=== PATIENT | male | born 1960 | race Caucasian/White ===

== ENCOUNTER 2017-03-28 16:38 | Inpatient (IN) | payer SELFPAY ==
[~2017-03-28] VITALS: Ht 172.7 cm; Wt 64.5 kg
[2017-03-28] VITALS (10 sets, daily range): BP systolic 108–156; BP diastolic 67–93; PULSE 92–144; RESP 16–24; TEMP 91.3–98.1; O2SAT 95–100
[~2017-03-28 16:38] MED LIST: CALCIUM CHLORIDE 10% SOLN 1 GRAM/10 ML SYR IV ONE; FOLI1TAB PO; LANTUSP SQ; LORA-474 PO; MULTCAP13 PO; NRSS SQ; PROC60TA PO; SIMV20 PO; SODIUM BICARBONATE 8.4% INJ 50 MEQ/50 ML SYR IV ONE
[2017-03-28] MEDS ORDERED: SODIUM CHLOR 0.9% 1000 ML INJ 1,000 ML IV ONE ×4 (16:50→17:20)
[2017-03-28] MEDS ORDERED: SODIUM CHLORIDE 0.9% FLUSH 10 ML FLUSH IVF PRN (17:00)
[2017-03-28] MEDS ORDERED: INSULIN HUMAN REGULAR 1,000 UNITS/10 ML VIAL IV PUSH ONE ×2 (17:00→17:45)
[2017-03-28] MEDS: SODIUM BICARBONATE 8.4% INJ 50 MEQ/50 ML SYR IV PUSH ONE ×2 (17:10→17:43)
[2017-03-28 17:11] LABS: BLOOD GAS BASE EXCESS -27.5 mmol/L (-2-2); BLOOD GAS CARBOXYHEMOGLOBIN 0.9 % (0-4); BLOOD GAS HCO3 2 mmol/L (22-26); BLOOD GAS METHEMOGLOBIN 0.5 % (0-2); BLOOD GAS O2 HGB SATURATION 98 % (90-100); BLOOD GAS OXYGEN CONTENT 19.7 Vol % (12.0-20.0); BLOOD GAS PCO2 8 mmHg (38-42); BLOOD GAS PO2 259 mmHG (61-120); BLOOD GAS TOTAL HGB 13.9 G/DL (12.0-16.0); TEMP CORR TO 98.6
[2017-03-28 17:12] LABS: CRITICAL VALUE YES; DRAW SITE LT RADIAL; LITER FLOW 4 L/M; NUMBER OF ARTERIAL PUNCTURES 1; OXYGEN DEVICE NASAL CANNULA; STAT YES; ULNAR PULSE PRESENT
[2017-03-28 17:33] LABS: BASOPHIL % 0.3 % (0.0-2.0); EOSINOPHIL % 0.1 % (0.0-4.0); HEMATOCRIT 43.4 % (39.0-51.0); LYMPH % 5.2 % (9.0-44.0); LYMPHOCYTE # 0.4 TH/MM3 (1.0-4.8); MEAN CELL VOLUME 106.9 FL (80.0-100.0); MEAN CORPUSCULAR HGB CONC 32.8 % (32.0-36.0); MONO % 5.5 % (0.0-8.0); NEUT % 88.9 % (16.0-70.0); PLATELET COUNT 229 TH/MM3 (150-450); RED BLOOD COUNT 4.06 MIL/MM3 (4.50-5.90); RED CELL DISTRIBUTION WIDTH 13.4 % (11.6-17.2); WHITE BLOOD COUNT 6.7 TH/MM3 (4.0-11.0)
[2017-03-28] MEDS ORDERED: LANTUS2P SQ (17:34)
[2017-03-28] MEDS ORDERED: NOVOLOGP2 SQ (17:34)
[2017-03-28 17:38] LABS: HEMO FLAGS AUTO DIFF
[2017-03-28] MEDS ORDERED: CEFEPIME INJ 2,000 MG in SODIUM CHLORIDE 0.9% INJ 100 ML IV ONE (17:45)
[2017-03-28] MEDS ORDERED: CALCIUM CHLORIDE 10% SOLN 1 GRAM/10 ML SYR IV PUSH ONE (17:45)
[2017-03-28] MEDS ORDERED: SODIUM BICARBONATE 8.4% INJ 50 MEQ/50 ML SYR IV PUSH ONE (17:45)
[2017-03-28] MEDS ORDERED: VANCOMYCIN INJ 1,000 MG in SODIUM CHLOR 0.9% 250 ML INJ 250 ML IV ONE (17:45)
--- NOTE | 2017-03-28 17:46 | PD ---
HPI Chief Complaint: Diabetic Time Seen by Provider: 16:40 Travel History International Travel<30 days: No Contact w/Intl Traveler<30days: No Traveled to known affect area: No History of Present Illness HPI The patient's 56 years old. He is a insulin-dependent diabetic. EMS reports they were called by his because he was found down at home. On scene the blood glucose was outside of the measurable range. Initially when the patient arrived he was only minimally responsive. EMS did place a right antecubital 16- gauge IV. Here in the blood glucose was unmeasurably high. The EKG revealed peaked T waves and a QRS complex duration of 132 ms. 2 L normal saline immediately initiated along with calcium and 10 units of insulin. The patient then underwent placement of a right internal jugular central line. He subsequently received 3 and feels of bicarbonate, a second gram of calcium chloride and a second dose of insulin 10 units. 2 additional liters normal saline transfused. The patient then became conversant reported that he was vomiting repeatedly uncontrollably. the patient denies drinking any alcohol for the past 4 weeks. He also states that if he is physically inactive then insulin seems to not work despite large doses. PFSH Past Medical History Autoimmune Disease: No Anxiety: No Depression: No Cancer: No Cardiovascular Problems: No High Cholesterol: Yes Diabetes: Yes Patient Takes Glucophage: No Diminished Hearing: No Endocrine: Yes Genitourinary: Yes (H/O kidney stones) Immune Disorder: No Musculoskeletal: No Neurologic: No Psychiatric: No Reproductive: No Respiratory: No Immunizations Current: Yes Thyroid Disease: No Past Surgical History Abdominal Surgery: Yes (LEFT HERNIORRAPHY) Cardiac Surgery: No Ear Surgery: No Endocrine Surgery: No Eye Surgery: No Genitourinary Surgery: No Gynecologic Surgery: No Oral Surgery: No Thoracic Surgery: No Social History Alcohol Use: No Tobacco Use: No Substance Use: No (MARIJUANA ) Allergies-Medications (Allergen,Severity, Reaction): Coded Allergies: No Known Allergies (Verified , 03/28/17) Reported Meds & Prescriptions Reported Meds & Active Scripts Active Reported Lantus Inj (Insulin Glargine) 1,000 Unit/10 Ml Vial 37 Units SQ HS Novolog Inj (Insulin Aspart) 1,000 Unit/10 Ml Vial 0 SQ DIRECTED Sliding Scale as directed. Folate (Folic Acid) 1 Mg Tab 1 Mg PO DAILY Multi Complete (Multiple Vitamins W/ Minerals) Complete Cap 1 PO Procardia Xl (Nifedipine) 60 Mg Tab 60 Mg PO DAILY Ativan (Lorazepam) 1 Mg Tab 1 Mg PO Q4HPRN Take 1 tablet by mouth every 6 hours as needed for anxiety (generic for ativan) Novolin Regular Insulin Supplemental Scale (Insulin Human Regular) U 100 Inj 0 SQ DAILY Zocor (Simvastatin) 20 Mg Tab 20 Mg PO HS Lantus (Insulin Glargine) 100 Units/Ml Inj 30 Units SQ HS Review of Systems ROS Limitations: Altered Mental Status Physical Exam Narrative GENERAL: 56 yo M, moderate to severe distress, WNWD, speaks some sentences SKIN: Focused skin assessment warm/dry. HEAD: Atraumatic. Normocephalic. EYES: Pupils equal and round. No scleral icterus. No injection or drainage. ENT: No nasal bleeding or discharge. Mucous membranes pink and moist. NECK: Trachea midline. No JVD. CARDIOVASCULAR: Tachycardia. Irregular. RESPIRATORY: Tachypnea. Lungs clear. GASTROINTESTINAL: Abdomen soft, non-tender, nondistended. Hepatic and splenic margins not palpable. MUSCULOSKELETAL: No obvious deformities. No clubbing. No cyanosis. No edema. NEUROLOGICAL: Answers some questions. No focal cranial nerve deficit. Moves all extremities normally. PSYCHIATRIC. Unable to assess. Data Data Last Documented VS Vital Signs Date Time Temp Pulse Resp B/P Pulse Ox O2 Delivery O2 Flow Rate FiO2 03/28/17 17:55 91.3 03/28/17 17:36 135 24 108/67 95 Room Air 03/28/17 16:55 2 Orders Electrocardiogram (03/28/17 16:50) Complete Blood Count With Diff (03/28/17 16:50) Comprehensive Metabolic Panel (03/28/17 16:50) Magnesium (Mg) (03/28/17 16:50) Phosphorus (Po4) (03/28/17 16:50) Beta Hydroxybutyrate (Acetone) (03/28/17 16:50) Osmolality,Serum (03/28/17 16:50) Lactic Acid (03/28/17 16:50) Urinalysis - C+S If Indicated (03/28/17 16:50) Chest, Single Ap (03/28/17 16:50) Arterial Blood Gas (Abg) (03/28/17 16:50) Blood Glucose (03/28/17 16:50) Blood Glucose (03/28/17 17:50) Ecg Monitoring (03/28/17 16:50) Iv Access Insert/Monitor (03/28/17 16:50) Oximetry (03/28/17 16:50) Oxygen Administration (03/28/17 16:50) NPO (03/28/17 16:50) Sodium Chlor 0.9% 1000 Ml Inj (Ns 1000 M (03/28/17 16:50) Sodium Chlor 0.9% 1000 Ml Inj (Ns 1000 M (03/28/17 17:20) Sodium Chloride 0.9% Flush (Ns Flush) (03/28/17 17:00) Sodium Chlor 0.9% 1000 Ml Inj (Ns 1000 M (03/28/17 16:50) Troponin I (03/28/17 16:50) Lipase (03/28/17 16:50) Insulin Human Regular Inj (Novolin R Inj (03/28/17 17:00) Sodium Chlor 0.9% 1000 Ml Inj (Ns 1000 M (03/28/17 17:00) I-Stat Creatinine (03/28/17 16:50) I-Stat Profile (03/28/17 16:50) Drug Screen, Random Urine (03/28/17 17:31) Sodium Bicarbonate 8.4% Inj (Sodium Bica (03/28/17 17:45) Sodium Bicarbonate 8.4% Inj (Sodium Bica (03/28/17 17:45) Insulin Human Regular Inj (Novolin R Inj (03/28/17 17:45) Calcium Chloride Inj (Calcium Chloride I (03/28/17 17:45) Warming Rose / Warming Syst PRN (03/28/17 17:41) Cefepime Inj (Maxipime Inj) (03/28/17 17:45) Vancomycin Inj (Vancomycin Inj) (03/28/17 17:45) Urinary Catheter Insert/Apply (03/28/17 17:42) Blood Culture (03/28/17 17:46) Alcohol (Ethanol) (03/28/17 17:15) Admit To Inpatient (03/28/17 ) Tinsmith Apprentice / Telemetry BERNICE.Q8H (03/28/17 18:40) ^ Insert Iv (03/28/17 18:40) ^ Teach Patient (03/28/17 18:40) Diet Npo (03/28/17 Dinner) Bedside Glucose BERNICE.Q1H (03/28/17 18:40) Sodium Chlor 0.9% 1000 Ml Inj (Ns 1000 M (03/28/17 18:40) Dext 5%-Nacl 0.9% 1000 Ml Inj (D5w-Ns 10 (03/28/17 18:40) Insulin Regular (Iv Infusion) (Novolin R (03/28/17 18:45) Potassium Chlor 40 Meq Premix (Kcl 40 Me (03/28/17 18:45) Potassium Chlor 40 Meq Premix (Kcl 40 Me (03/28/17 18:45) Potassium Chlor 20 Meq Premix (Kcl 20 Me (03/28/17 18:45) Potassium Chlor 20 Meq Premix (Kcl 20 Me (03/28/17 18:45) Potassium Chlor 20 Meq Premix (Kcl 20 Me (03/28/17 18:45) Potassium Chlor 20 Meq Premix (Kcl 20 Me (03/28/17 18:45) Potassium Chlor 20 Meq Premix (Kcl 20 Me (03/28/17 18:45) Potassium Chlor 20 Meq Premix (Kcl 20 Me (03/28/17 18:45) Sodium Bicarbonate 8.4% Inj (Sodium Bica (03/28/17 18:45) Sodium Bicarbonate 8.4% Inj (Sodium Bica (03/28/17 18:45) Sodium Phosphate Inj (Sodium Phosphate I (03/28/17 18:45) Basic Metabolic Panel (Bmp) (03/28/17 23:40) Basic Metabolic Panel (Bmp) (03/29/17 05:40) Basic Metabolic Panel (Bmp) (03/29/17 11:40) Basic Metabolic Panel (Bmp) (03/29/17 17:40) Magnesium (Mg) (03/28/17 23:40) Magnesium (Mg) (03/29/17 05:40) Magnesium (Mg) (03/29/17 11:40) Magnesium (Mg) (03/29/17 17:40) Phosphorus (Po4) (03/28/17 23:40) Phosphorus (Po4) (03/29/17 05:40) Phosphorus (Po4) (03/29/17 11:40) Phosphorus (Po4) (03/29/17 17:40) Beta Hydroxybutyrate (Acetone) (03/29/17 05:40) Beta Hydroxybutyrate (Acetone) (03/29/17 17:40) ^ Initiate Protocol (03/28/17 18:40) ^ Instruction (03/28/17 18:40) [facility] Nursing Information (03/28/17 18:45) Chlorhexidine 2% Cloth (Chlorhexidine 2% (03/29/17 04:00) Chlorhexidine 2% Cloth (Chlorhexidine 2% (03/28/17 18:45) Mrsa Pcr Surveillance (03/28/17 18:40) Inpatient Certification (03/28/17 ) Consult Hospitalist (03/28/17 ) Admit Order (Ed Use Only) (03/28/17 18:51) Labs Laboratory Tests Test 03/28/17 03/28/17 03/28/17 16:48 17:15 17:56 Blood Gas Puncture Site LT RADIAL Blood Gas Patient Temperature 98.6 Blood Gas HCO3 2 mmol/L Blood Gas Base Excess -27.5 mmol/L Blood Gas Oxygen Saturation 98 % Arterial Blood pH 7.02 Arterial Blood Partial 8 mmHg Pressure CO2 Arterial Blood Partial 259 mmHG Pressure O2 Arterial Blood Oxygen Content 19.7 Vol % Arterial Blood 0.9 % Carboxyhemoglobin Arterial Blood Methemoglobin 0.5 % Blood Gas Hemoglobin 13.9 G/DL Oxygen Delivery Device NASAL CANNULA Blood Gas Liter Flow 4 L/M White Blood Count 6.7 TH/MM3 Red Blood Count 4.06 MIL/MM3 Hemoglobin 14.2 GM/DL Bedside Hemoglobin 16.3 G/DL Hematocrit 43.4 % Bedside Hematocrit 48.0 % Mean Corpuscular Volume 106.9 FL Mean Corpuscular Hemoglobin 35.0 PG Mean Corpuscular Hemoglobin 32.8 % Concent Red Cell Distribution Width 13.4 % Platelet Count 229 TH/MM3 Mean Platelet Volume 9.4 FL Neutrophils (%) (Auto) 88.9 % Lymphocytes (%) (Auto) 5.2 % Monocytes (%) (Auto) 5.5 % Eosinophils (%) (Auto) 0.1 % Basophils (%) (Auto) 0.3 % Neutrophils # (Auto) 6.0 TH/MM3 Lymphocytes # (Auto) 0.4 TH/MM3 Monocytes # (Auto) 0.4 TH/MM3 Eosinophils # (Auto) 0.0 TH/MM3 Basophils # (Auto) 0.0 TH/MM3 CBC Comment AUTO DIFF Differential Total Cells 100 Counted Neutrophils % (Manual) 78 % Band Neutrophils % 7 % Lymphocytes % 4 % Monocytes % 11 % Neutrophils # (Manual) 5.7 TH/MM3 Differential Comment FINAL DIFF MANUAL Platelet Estimate NORMAL Platelet Morphology Comment NORMAL Red Cell Morphology Comment NORMAL Bedside Sodium 117 MMOL/L Sodium Level 118 MEQ/L Bedside Potassium 5.5 MMOL/L Potassium Level 5.3 MEQ/L Bedside Chloride 93 MMOL/L Chloride Level 83 MEQ/L Carbon Dioxide Level 6.0 MEQ/L Anion Gap 29 MEQ/L Bedside Blood Urea Nitrogen 58 MG/DL Blood Urea Nitrogen 52 MG/DL Creatinine 2.48 MG/DL Bedside Creatinine 2.0 MG/DL Estimat Glomerular Filtration 27 ML/MIN Rate Bedside Glucose GREATER THAN 700 MG/DL Random Glucose 869 MG/DL Serum Osmolality 324 MOSM/KG Lactic Acid Level 1.7 mmol/L Calcium Level 8.5 MG/DL Phosphorus Level 6.8 MG/DL Magnesium Level 2.9 MG/DL Total Bilirubin 0.6 MG/DL Aspartate Amino Transf 48 U/L (AST/SGOT) Alanine Aminotransferase 36 U/L (ALT/SGPT) Alkaline Phosphatase 158 U/L Troponin I LESS THAN 0.02 NG/ML Total Protein 6.5 GM/DL Albumin 3.4 GM/DL Lipase 647 U/L Ethyl Alcohol Level LESS THAN 3 MG/DL B-Hydroxybutyrate 11.85 MMOL/L Urine Color LIGHT-YELLOW Urine Turbidity CLEAR Urine pH 5.0 Urine Specific [place] 1.012 Urine Protein TRACE mg/dL Urine Glucose (UA) 1000 mg/dL Urine Ketones 40 mg/dL Urine Occult Blood SMALL Urine Nitrite NEG Urine Bilirubin NEG Urine Urobilinogen LESS THAN 2.0 MG/DL Urine Leukocyte Esterase NEG Urine RBC LESS THAN 1 /hpf Urine WBC 5 /hpf Urine Squamous Epithelial <1 /hpf Cells Urine Bacteria NONE /hpf Urine Mucus FEW /lpf Urine Yeast (Budding) Microscopic Urinalysis Comment CULT NOT INDICATED Urine Opiates Screen NEG Urine Barbiturates Screen NEG Urine Amphetamines Screen NEG Urine Benzodiazepines Screen NEG Urine Cocaine Screen NEG Urine Cannabinoids Screen NEG MDM Medical Decision Making Medical Screen Exam Complete: Yes Emergency Medical Condition: Yes Medical Record Reviewed: Yes Differential Diagnosis Diabetic ketoacidosis, nonketotic hyperglycemic state, hyperkalemia, renal failure, rhabdomyolysis, anemia, sepsis Narrative Course Patient's rectal temperature 91.8. A warming blanket was applied. Blood cultures drawn. Vancomycin and cefepime started. Bell catheter was initiated as well. [id number] electrolytes reveal sodium 117, potassium 5.5, chloride 93, BUN 58 , creatinine 2.0, glucose greater than 700, hemoglobin 16.3 AB.02/8/2 base excess -27.5 ABG PO2 259 on 4 L Patient has diabetic ketoacidosis and will be admitted to the ICU for its management. CBC & BMP Diagram 03/28/17 17:15 Anion gap 29 Been neutrophils 7% Serum osmolality 329 Lipase 647 Troponin less than 0.02 Beta 11.85 First EKG reveals atrial fibrillation with a QRS interval of 132 ms and some prominence of the T waves After initial resuscitative measures the repeat EKG reveals a supraventricular somewhat irregular rhythm with a QRS interval of 112 ms The patient [place] be [place] [facility] Case discussed with Dr. Sherman. Critical Care Narrative Aggregate critical care time was 45 minutes. Time to perform other separately billable procedures was not included in the critical care time. My time did not include minutes spent treating any other patients simultaneously or on activities that did not directly contribute to the patient's treatment. The services I provided to this patient were to treat and/or prevent clinically significant deterioration that could result in: Arrhythmia, cardiac arrest I provided critical care services requiring my management, as noted below: Chart data review, documentation time, medication orders and management, vital sign assessments/reviewing monitor data, ordering and reviewing lab tests, ordering and interpreting/reviewing x-rays and diagnostic studies, care of the patient and discussion of the patient with the admitting physicians.Aggregate critical care Procedures Procedure Narrative CENTRAL VENOUS LINE: The site was prepped with Betadine and sterilely draped. It was infiltrated with 1% lidocaine plain. The deep vein was cannulated using normal Seldinger technique. A 3 lumen central line was placed in the internal jugular site and secured with simple interrupted suture. The site was sterilely dressed. The patient tolerated the procedure well. Ultrasound technique employed. Diagnosis Primary Impression: DKA (diabetic ketoacidoses) Qualified Code: E10.10 - Diabetic ketoacidosis without coma associated with type 1 diabetes mellitus Additional Impressions: Atrial fibrillation Qualified Code: I48.91 - Atrial fibrillation, unspecified type Hyponatremia Hyperkalemia Prerenal renal failure Admitting Information Admitting Physician Requests: Admit Ronald Barrera MD March 28, 2017 17:46
--- NOTE | 2017-03-28 18:03 | RADRPT ---
EXAM DATE/TIME: 03/28/2017 17:10 [place] COMPARISON: No previous studies available for comparison. INDICATIONS : Post central line placement. MEDICAL HISTORY : Diabetes mellitus type II. SURGICAL HISTORY : None. ENCOUNTER: Initial ACUITY: 1 day PAIN SCORE: 0/10 LOCATION: Bilateral chest FINDINGS: A right internal jugular central line has its tip in the superior vena cava. There is no pneumothora x. The heart and mediastinal structures are normal. The pulmonary vascular pattern is also normal. The lungs are clear. CONCLUSION: 1. No pneumothorax status post placement of right internal jugular central line which has its tip in the superior vena cava. Eddi Van MD on March 28, 2017 at 17:58 Board Certified Radiologist. This report was verified electronically.
[2017-03-28 18:07] LABS: I-STAT POTASSIUM 5.5 MMOL/L (3.5-4.9); I-STAT SODIUM 117 MMOL/L (138-146)
[2017-03-28 18:11] LABS: BANDS 7 % (0-6); NEUTROPHIL # MANUAL DIFF 5.7 TH/MM3 (1.8-7.7); PLATELET ESTIMATE SMEAR NORMAL (NORMAL); PLATELET MORPHOLOGY NORMAL (NORMAL); POLYS (SEG NEUTROPHILS) 78 % (16-70); SCAN/DIFF FINAL DIFF MANUAL; WBC DIFF SAMPLE 100
[2017-03-28 18:17] LABS: BLOOD, URINE SMALL (NEG); COMMENT (UR) CULT NOT INDICATED; CULTURE IF INDICATED CULT NOT INDICATED; GLUCOSE,URINE 1000 mg/dL (NEG); KETONE, URINE 40 mg/dL (NEG); MUCUS URINE FEW /lpf (OCC); NITRITE,URINE NEG (NEG); SQUAMOUS EPITHELIAL CELL URINE <1 /hpf (0-5); URINE COLOR LIGHT-YELLOW (YELLW/STRAW)
[2017-03-28 18:25] LABS: AMPHETAMINE, URINE NEG (NEG); BARBITURATES, URINE NEG (NEG); COCAINE, URINE NEG (NEG)
[2017-03-28 18:36] LABS: ALKALINE PHOSPHATASE 158 U/L (45-117); ALT (GPT) 36 U/L (12-78); ANION GAP 29 MEQ/L (5-15); AST (GOT) 48 U/L (15-37); BLOOD UREA NITROGEN 52 MG/DL (7-18); CHLORIDE 83 MEQ/L (98-107); GLOMERULAR FILTRATION RATE 27 ML/MIN (>89); MAGNESIUM 2.9 MG/DL (1.5-2.5); TOTAL BILIRUBIN ADULT 0.6 MG/DL (0.2-1.0)
[2017-03-28 18:37] LABS: POTASSIUM 5.3 MEQ/L (3.5-5.1)
[2017-03-28 18:40] LABS: SODIUM (NA) 118 MEQ/L (136-145)
--- NOTE | 2017-03-28 18:43 | HHI.HP ---
[facility] Service Critical Care Medicine Primary Care Physician Unknown Admission Diagnosis Diagnosis: Travel History International Travel<30 Days: No Contact w/Intl Traveler <30 Da: No Traveled to Known Affected Are: No History of Present Illness 56 years old with a history of an insulin-dependent diabetes mellitus was found by his down at home. On scene the blood glucose was outside of the measurable range. Initially when the patient arrived to emergency department he was only minimally responsive. He was emergently resuscitated with IV fluid hydration and insulin bolus. He has been admitted to ICU with the DKA. Review of Systems Constitutional: COMPLAINS OF: Diaphoretic episodes, Fatigue, DENIES: Fever, Weight gain, Weight loss, Chills, Dizziness, Change in appetite, Night Sweats Endocrine: DENIES: Heat/cold intolerance, Polydipsia, Polyuria, Polyphagia Eyes: DENIES: Blurred vision, Diplopia, Eye inflammation, Eye pain, Vision loss , Photosensitivity, Double Vision Ears, nose, mouth, throat: DENIES: Tinnitus, Hearing loss, Vertigo, Nasal discharge, Oral lesions, Throat pain, Hoarseness, Ear Pain, Running Nose, Epistaxis, Sinus Pain, Toothache, Odynophagia Respiratory: DENIES: Apneas, Cough, Snoring, Wheezing, Hemoptysis, Sputum production, Shortness of breath Cardiovascular: DENIES: Chest pain, Palpitations, Syncope, Dyspnea on Exertion , PND, Lower Extremity Edema, Orthopnea, Claudication Gastrointestinal: COMPLAINS OF: Abdominal pain, Nausea, Vomiting, DENIES: Black stools, Bloody stools, Constipation, Diarrhea, Difficulty Swallowing, Anorexia Genitourinary: DENIES: Sexual dysfunction, Urinary frequency, Urinary incontinence, Urgency, Hematuria, Dysuria, Nocturia, Penile Discharge, Testicular Pain, Testicular Swelling Integumentary: DENIES: Abnormal pigmentation, Nail changes, Pruritus, Rash Hematologic/lymphatic: DENIES: Bruising, Lymphadenopathy Immunologic/allergic: DENIES: Eczema, Urticaria Past Family Social History Allergies: Coded Allergies: No Known Allergies (Verified , 03/28/17) Past Medical History Insulin-dependent diabetes mellitus Dyslipidemia Past Surgical History None Reported Medications Reported Meds & Active Scripts Active Reported Lantus Inj (Insulin Glargine) 1,000 Unit/10 Ml Vial 37 Units SQ HS Novolog Inj (Insulin Aspart) 1,000 Unit/10 Ml Vial 0 SQ DIRECTED Sliding Scale as directed. Active Ordered Medications Current Medications Medications (Trade) Dose Ordered Sig/Cherise Route PRN Reason Start Time Stop Time Status Last Admin Dose Admin Sodium Chloride 2 ml 2 ml UNSCH PRN IVF FLUSH AFTER USING IV ACCESS 03/28/17 17:00 Sodium Chloride 1,000 ml @ 250 mls/hr Q4H IV 03/28/17 18:40 03/28/17 19:27 Dextrose/Sodium Chloride 1,000 ml @ 200 mls/hr Q5H IV 03/28/17 18:40 Insulin Human Regular 100 units/ Sodium Chloride 100 ml @ 0 mls/hr TITRATE IV 03/28/17 18:45 03/28/17 19:26 Potassium Chloride 100 ml @ 100 mls/hr Q1H PRN IV SEE LABEL COMMENTS 03/28/17 18:45 Potassium Chloride 100 ml @ 50 mls/hr Q2H PRN IV SEE LABEL COMMENTS 03/28/17 18:45 Potassium Chloride 100 ml @ 100 mls/hr Q1H PRN IV SEE LABEL COMMENTS 03/28/17 18:45 Potassium Chloride 100 ml @ 100 mls/hr Q1H PRN IV SEE LABEL COMMENTS 03/28/17 18:45 Potassium Chloride 100 ml @ 50 mls/hr Q2H PRN IV SEE LABEL COMMENTS 03/28/17 18:45 Potassium Chloride 100 ml @ 50 mls/hr Q2H PRN IV SEE LABEL COMMENTS 03/28/17 18:45 Potassium Chloride 100 ml @ 50 mls/hr Q2H PRN IV SEE LABEL COMMENTS 03/28/17 18:45 Potassium Chloride (KCl 20 Meq Premix Inj) 100 ml @ 50 mls/hr Q2H PRN IV SEE LABEL COMMENTS 03/28/17 18:45 Sodium Bicarbonate (Sodium Bicarbonate 8.4% Inj) 100 meq UNSCH PRN IV SEE LABEL COMMENTS 03/28/17 18:45 Sodium Bicarbonate 50 meq 50 meq UNSCH PRN IV SEE LABEL COMMENTS 03/28/17 18:45 Sodium Phosphate/ Sodium Chloride (Sodium Phosphate Inj/NS Inj) 105 ml @ 25 mls/hr UNSCH PRN IV SEE LABEL COMMENTS 03/28/17 18:45 Miscellaneous Information 1 [id number] XX 03/28/17 18:45 Chlorhexidine Gluconate (Chlorhexidine 2% Cloth) 3 pack Taper DAILY@04 TOP 03/29/17 04:00 03/25/18 03:59 Chlorhexidine Gluconate (Chlorhexidine 2% Cloth) 3 pack UNSCH PRN TOP HYGIENIC CARE 03/28/17 18:45 Family History Noncontributory Social History History of alcohol binge drinking in the past No history of smoking or illicit drug abuse Physical Exam Vital Signs Vital Signs Date Time Temp Pulse Resp B/P Pulse Ox O2 Delivery O2 Flow Rate FiO2 03/28/17 17:55 91.3 03/28/17 17:41 91.3 03/28/17 17:36 135 24 108/67 95 Room Air 03/28/17 17:10 110 24 128/85 95 Room Air 03/28/17 16:55 95 Nasal Cannula 2 03/28/17 16:50 144 Physical Exam GENERAL: Well-nourished, well-developed patient. SKIN: Warm and dry. HEAD: Normocephalic. EYES: No scleral icterus. No injection or drainage. NECK: Supple, trachea midline. No JVD or lymphadenopathy. CARDIOVASCULAR: Regular rate and rhythm without murmurs, gallops, or rubs. RESPIRATORY: Breath sounds equal bilaterally. No accessory muscle use. GASTROINTESTINAL: Abdomen soft, non-tender, nondistended. MUSCULOSKELETAL: No cyanosis, or edema. BACK: Nontender without obvious deformity. No CVA tenderness. EXTREMITIES: No clubbing cyanosis or edema Laboratory Laboratory Tests Test 03/28/17 03/28/17 03/28/17 16:48 17:15 17:56 Blood Gas Puncture Site LT RADIAL Blood Gas Patient Temperature 98.6 Blood Gas HCO3 2 Blood Gas Base Excess -27.5 Blood Gas Oxygen Saturation 98 Arterial Blood pH 7.02 Arterial Blood Partial 8 Pressure CO2 Arterial Blood Partial 259 Pressure O2 Arterial Blood Oxygen Content 19.7 Arterial Blood 0.9 Carboxyhemoglobin Arterial Blood Methemoglobin 0.5 Blood Gas Hemoglobin 13.9 Oxygen Delivery Device NASAL CANNULA Blood Gas Liter Flow 4 White Blood Count 6.7 Red Blood Count 4.06 Hemoglobin 14.2 Bedside Hemoglobin 16.3 Hematocrit 43.4 Bedside Hematocrit 48.0 Mean Corpuscular Volume 106.9 Mean Corpuscular Hemoglobin 35.0 Mean Corpuscular Hemoglobin 32.8 Concent Red Cell Distribution Width 13.4 Platelet Count 229 Mean Platelet Volume 9.4 Neutrophils (%) (Auto) 88.9 Lymphocytes (%) (Auto) 5.2 Monocytes (%) (Auto) 5.5 Eosinophils (%) (Auto) 0.1 Basophils (%) (Auto) 0.3 Neutrophils # (Auto) 6.0 Lymphocytes # (Auto) 0.4 Monocytes # (Auto) 0.4 Eosinophils # (Auto) 0.0 Basophils # (Auto) 0.0 CBC Comment AUTO DIFF Differential Total Cells 100 Counted Neutrophils % (Manual) 78 Band Neutrophils % 7 Lymphocytes % 4 Monocytes % 11 Neutrophils # (Manual) 5.7 Differential Comment FINAL DIFF MANUAL Platelet Estimate NORMAL Platelet Morphology Comment NORMAL Red Cell Morphology Comment NORMAL Bedside Sodium 117 Sodium Level 118 Bedside Potassium 5.5 Potassium Level 5.3 Bedside Chloride 93 Chloride Level 83 Carbon Dioxide Level 6.0 Anion Gap 29 Bedside Blood Urea Nitrogen 58 Blood Urea Nitrogen 52 Creatinine 2.48 Bedside Creatinine 2.0 Estimat Glomerular Filtration 27 Rate Bedside Glucose GREATER THAN 700 Random Glucose 869 Serum Osmolality 324 Lactic Acid Level 1.7 Calcium Level 8.5 Phosphorus Level 6.8 Magnesium Level 2.9 Total Bilirubin 0.6 Aspartate Amino Transf 48 (AST/SGOT) Alanine Aminotransferase 36 (ALT/SGPT) Alkaline Phosphatase 158 Troponin I LESS THAN 0.02 Total Protein 6.5 Albumin 3.4 Lipase 647 Ethyl Alcohol Level LESS THAN 3 Urine Color LIGHT-YELLOW Urine Turbidity CLEAR Urine pH 5.0 Urine Specific [place] 1.012 Urine Protein TRACE Urine Glucose (UA) 1000 Urine Ketones 40 Urine Occult Blood SMALL Urine Nitrite NEG Urine Bilirubin NEG Urine Urobilinogen LESS THAN 2.0 Urine Leukocyte Esterase NEG Urine RBC LESS THAN 1 Urine WBC 5 Urine Squamous Epithelial <1 Cells Urine Bacteria NONE Urine Mucus FEW Urine Yeast (Budding) Microscopic Urinalysis Comment CULT NOT INDICATED Urine Opiates Screen NEG Urine Barbiturates Screen NEG Urine Amphetamines Screen NEG Urine Benzodiazepines Screen NEG Urine Cocaine Screen NEG Urine Cannabinoids Screen NEG Date/Time Procedure Status Source Growth 03/28/17 18:15 Aerobic Blood Culture Received Blood Other Pending 03/28/17 18:15 Anaerobic Blood Culture Received Blood Other Pending Result Diagram: 03/28/17 1715 03/28/17 1715 Assessment and Plan Assessment and Plan DKA - Insulin drip as per protocol - Serial labs - Chest x-ray negative - Follow-up blood cultures - Aggressive IV fluid hydration - ICU admission Dyslipidemia - Lipid fasting panel a.m. DVT GI prophylaxis - Early aggressive mobilization - Pepcid Critical Care: The total critical care time was 35 minutes. Time to perform other separately billable procedures was not included in the critical care time. Scott Sherman MD March 28, 2017 18:43
[2017-03-28 18:45] LABS: BETA-HYDROXYBUTYRATE 11.85 MMOL/L (0.00-0.39)
[2017-03-28] MEDS ORDERED: MISCELLANEOUS NURSING INFORMATION XX SCH (18:45)
[2017-03-28] MEDS ORDERED: SODIUM PHOSPHATE INJ 15 MMOL in SODIUM CHLORIDE 0.9% INJ 100 ML IV PRN (18:45)
[2017-03-28] MEDS ORDERED: POTASSIUM CHLOR 20 MEQ PREMIX 100 ML IV PRN ×6 (18:45)
[2017-03-28] MEDS ORDERED: CHLORHEXIDINE GLUCONATE 2 % 1 PACK (2 CLOTHS) TOP PRN (18:45)
[2017-03-28] MEDS ORDERED: SODIUM BICARBONATE 8.4% SOLN 50 MEQ/50 ML VIAL IV PRN ×2 (18:45)
[2017-03-28] MEDS ORDERED: POTASSIUM CHLOR 40 MEQ PREMIX 100 ML IV PRN (18:45)
[2017-03-28] MEDS ORDERED: INSULIN REGULAR (IV INFUSION) 100 UNITS in SODIUM CHLORIDE 0.9% INJ 99 ML IV SCH (18:45)
[2017-03-28] MEDS: SODIUM CHLOR 0.9% 1000 ML INJ 1,000 ML IV SCH ×2 (19:27→22:40)
[2017-03-29] VITALS (11 sets, daily range): BP systolic 126–155; BP diastolic 67–89; PULSE 72–94; RESP 18–21; TEMP 97.7–98.4; O2SAT 98–100
[2017-03-29 00:06] LABS: BICARBONATE 17.8 MEQ/L (21.0-32.0); MAGNESIUM 1.9 MG/DL (1.5-2.5); POTASSIUM 3.2 MEQ/L (3.5-5.1)
[2017-03-29] MEDS: DEXTROSE 50% IN WATER 50 ML VIAL(D50) IV PUSH PRN (00:14)
[2017-03-29] MEDS: DEXT 5%-NACL 0.9% 1000 ML INJ 1,000 ML IV SCH ×2 (00:16→04:40)
[2017-03-29] MEDS: POTASSIUM CHLOR 40 MEQ PREMIX 100 ML IV PRN ×2 (01:05→02:08)
[2017-03-29] MEDS: CHLORHEXIDINE GLUCONATE 2 % 1 PACK (2 CLOTHS) TOP SCH (02:09)
[2017-03-29 08:21] LABS: BETA-HYDROXYBUTYRATE 1.53 MMOL/L (0.00-0.39); BICARBONATE 18.4 MEQ/L (21.0-32.0); POTASSIUM 4.3 MEQ/L (3.5-5.1)
--- NOTE | 2017-03-29 08:44 | HHI.PR ---
Subjective Remarks Pt tells me that he feels better, still tired. thinks he can eat something light. tells me that he takes 37units of lantus at bedtime and uses a sliding scale at home. pt tells me that on he started w a cough, then went to work and starting feeling bad. cough initially was dry. he later that day started vomiting. Pt states that he hasn't been around sick contacts but for the past 3 days, pt had been drinking water, juices and yogurts because he wasn' t feeling well. He is usually pretty compliant w his meds however he cannot remember if he had taken his insulin regimen as usual during those 3 days because he was feeling very weak. he admits to cough and chills but never checked for fevers. currently denies any n/v/chills/CP/SOB Objective Vitals Vital Signs Date Time Temp Pulse Resp B/P Pulse Ox O2 Delivery O2 Flow Rate FiO2 03/29/17 06:00 82 03/29/17 04:00 97.7 77 19 126/84 100 03/29/17 04:00 77 03/29/17 02:00 78 03/29/17 00:00 94 03/29/17 00:00 97.8 94 21 143/81 100 03/28/17 22:00 108 03/28/17 20:57 98.1 109 19 156/86 100 03/28/17 19:34 103 16 100 Nasal Cannula 2 03/28/17 19:28 97 16 146/93 100 Nasal Cannula 2 03/28/17 18:55 94.9 92 18 135/87 98 03/28/17 17:55 91.3 03/28/17 17:41 91.3 03/28/17 17:36 135 24 108/67 95 Room Air 03/28/17 17:10 110 24 128/85 95 Room Air 03/28/17 16:55 95 Nasal Cannula 2 03/28/17 16:50 144 I/O 03/28/17 03/28/17 03/28/17 03/29/17 03/29/17 03/29/17 07:00 15:00 23:00 07:00 15:00 23:00 Intake Total 837 ml 1698 ml Output Total 3000 ml 1700 ml Balance -2163 ml -2 ml Intake IV Total 837 ml 1698 ml Output Urine Total 3000 ml 1700 ml # Bowel Movements 0 0 Result Diagram: 03/28/17 1715 03/29/17 0515 Imaging Last Impressions Chest X-Ray 03/28/17 1650 Signed Impressions: Service Date/Time: Tuesday, March 28, 2017 17:10 - CONCLUSION: 1. No pneumothorax status post placement of right internal jugular central line which has its tip in the superior vena cava. Eddi Van MD Objective Remarks GENERAL: Well-nourished, well-developed patient. SKIN: Warm and dry. CARDIOVASCULAR: Regular rate and rhythm without murmurs, gallops, or rubs. RESPIRATORY: Breath sounds equal bilaterally. No accessory muscle use. GASTROINTESTINAL: Abdomen soft, non-tender, nondistended. MUSCULOSKELETAL: No cyanosis, or edema. BACK: Nontender without obvious deformity. No CVA tenderness. EXTREMITIES: No clubbing cyanosis or edema A/P Assessment and Plan DKA - Insulin drip as per protocol at this time. Anion gap closed, CO2 above 18, beta hydroxybutyrate is 1.53. Will transition to SQ insulin protocol. Pt usually takes lantus 37units at bedtime. For now will start him on 15units of levemir in AM and 10units at bedtime and continue a medium ISS. Added zofran prn IV. start diabetic diet. - Serial labs - Chest x-ray reviewed by me negative, however pt did have a dry cough then started to feel sick. Suspect viral etiology which could have caused pt to feel sick leading to the DKA. Monitor pt closely. Encourage use of IS q1hr while awake. Pt had one episode of loose stools, per pt this was his first time. Pt had bandemia on admission, recheck CBC now. s/p one dose of vanc and cefipime. continue cefepime for now. - Follow-up blood cultures which are still pending. - continue IV fluid hydration, switch to NS @100ml/hr. Dyslipidemia - Lipid fasting panel a.m. DVT GI prophylaxis - Early aggressive mobilization - Pepcid Discharge Planning transitioning to SQ insulin, if tolerating diet transfer to regular floor later today Gayatri Pineda MD March 29, 2017 08:44
[2017-03-29] MEDS ORDERED: DC Insulin drip 2 hrs post basal insulin dose ONE (08:45)
[2017-03-29] MEDS ORDERED: DEXTROSE 50% IN WATER 50 ML VIAL(D50) IV PUSH PRN (08:45)
[2017-03-29] MEDS ORDERED: DC previous DKA orders (HMC 1917) ONE (08:45)
[2017-03-29] MEDS ORDERED: GLUCAGON 1 MG/ML VIAL OTHER PRN (08:45)
[2017-03-29] MEDS ORDERED: ONDANSETRON HCL 4 MG/2 ML VIAL IV PUSH PRN (09:15)
[2017-03-29] MEDS: INSULIN DETEMIR 100 UNITS/ML VIAL SQ SCH (09:15)
[2017-03-29] MEDS: CEFEPIME INJ 1,000 MG in SODIUM CHLORIDE 0.9% INJ 100 ML IV SCH ×2 (10:20→20:42)
[2017-03-29] MEDS: SODIUM CHLOR 0.9% 1000 ML INJ 1,000 ML IV SCH ×2 (10:20→19:15)
[2017-03-29 10:58] LABS: AUTOMATED NEUTROPHIL # 3.4 TH/MM3 (1.8-7.7); BASOPHIL % 0.2 % (0.0-2.0); EOSINOPHIL % 0.3 % (0.0-4.0); HEMATOCRIT 35.4 % (39.0-51.0); HEMO FLAGS DIFF FINAL; LYMPH % 8.2 % (9.0-44.0); LYMPHOCYTE # 0.4 TH/MM3 (1.0-4.8); MEAN CORPUSCULAR HEMOGLOBIN 34.4 PG (27.0-34.0); MEAN CORPUSCULAR HGB CONC 35.4 % (32.0-36.0); MONO % 13.8 % (0.0-8.0); NEUT % 77.5 % (16.0-70.0); PLATELET COUNT 143 TH/MM3 (150-450); RED BLOOD COUNT 3.65 MIL/MM3 (4.50-5.90); RED CELL DISTRIBUTION WIDTH 13.6 % (11.6-17.2); WHITE BLOOD COUNT 4.4 TH/MM3 (4.0-11.0)
[2017-03-29] MEDS: INSULIN ASPART SUPPLEMENTAL SCALE SQ SCH ×3 (11:00→20:54)
--- NOTE | 2017-03-29 16:42 | EKG ---
Date Performed: 03/28/2017 Time Performed: 16:56:29 PTAGE: 56 years EKG: ATRIAL FIBRILLATION WITH RAPID VENTRICULAR RESPONSE INTRAVENTRICULAR CONDUCTION DELAY When compared to previous tracing, the atrial fibrillation is new. The patient also has ST segment elevati on in leads V1 through V6 Along with widening of the QRS complex. Acute ST segment elevation infarct needs to be excluded Clinically. There is a terminal J wave in lead V4 and V5 that can be a marker Fo r ischemia and arrhythmia. Significant serial changes have occurred since the prior tracing Which was normal and clinical corrolation will be fundamentally Important. ABNORMAL ECG PREVIOUS TRACING : 08/04/2012 16.59 DOCTOR: Vianca Santana Interpretating Date/Time 03/29/2017 16:41:39
--- NOTE | 2017-03-29 16:48 | EKG ---
Date Performed: 03/28/2017 Time Performed: 18:52:59 PTAGE: 56 years EKG: SUPRAVENTRICULAR RHYTHM MODERATE INTRAVENTRICULAR CONDUCTION DELAY ST ELEVATION, PROBABLY E DELIA REPOLARIZATION NONSPECIFIC ST & T-WAVE ABNORMALITY Baseline artifact so the rhythm can not be ac tually determined. When compared to previous tracing, there is a persistant now Fairly diffuse ST kezia vation as there is new ST elevation in the Inferior leads. In addition to electrolyte and metabolic p roblems along with Myocardial ischemia, pericarditis should be considered and Excluded. Serial tracin gs are abnormal and significantly changed from the Patients baseline, which was normal in 2012. [place] KIM ECG PREVIOUS TRACING : 03/28/2017 16.56 DOCTOR: Vianca Santana Interpretating Date/Time 03/29/2017 16:46:53
[2017-03-29] MEDS ORDERED: BENZOCAINE 6 MG/MENTHOL 10 MG LOZENGE BUCCAL PRN (19:00)
[2017-03-29] MEDS ORDERED: INSULIN DETEMIR 100 UNITS/ML VIAL SQ SCH (21:00)
[2017-03-29 21:40] LABS: BETA-HYDROXYBUTYRATE 1.43 MMOL/L (0.00-0.39); BICARBONATE 22.8 MEQ/L (21.0-32.0); MAGNESIUM 1.8 MG/DL (1.5-2.5); POTASSIUM 3.1 MEQ/L (3.5-5.1)
[2017-03-30] MEDS: CHLORHEXIDINE GLUCONATE 2 % 1 PACK (2 CLOTHS) TOP SCH (00:07)
[2017-03-30 00:15] VITALS: BP 131/85; PULSE 85; RESP 18; TEMP 99.3; O2SAT 95
[2017-03-30] MEDS: SODIUM CHLOR 0.9% 1000 ML INJ 1,000 ML IV SCH (03:24)
[2017-03-30 04:20] VITALS: BP 143/92; PULSE 66; RESP 18; TEMP 98; O2SAT 97
[2017-03-30 05:22] LABS: BASOPHIL % 0.1 % (0.0-2.0); EOSINOPHIL % 0.7 % (0.0-4.0); HEMATOCRIT 34.4 % (39.0-51.0); HEMO FLAGS DIFF FINAL; LYMPH % 20.2 % (9.0-44.0); LYMPHOCYTE # 0.9 TH/MM3 (1.0-4.8); MEAN CELL VOLUME 97.9 FL (80.0-100.0); MEAN CORPUSCULAR HEMOGLOBIN 34.4 PG (27.0-34.0); MEAN CORPUSCULAR HGB CONC 35.2 % (32.0-36.0); MONO % 10.8 % (0.0-8.0); NEUT % 68.2 % (16.0-70.0); PLATELET COUNT 110 TH/MM3 (150-450); RED BLOOD COUNT 3.52 MIL/MM3 (4.50-5.90); RED CELL DISTRIBUTION WIDTH 13.7 % (11.6-17.2); WHITE BLOOD COUNT 4.4 TH/MM3 (4.0-11.0)
[2017-03-30 05:38] LABS: BICARBONATE 27.7 MEQ/L (21.0-32.0); HDL CHOLESTEROL 41.8 MG/DL (40.0-60.0)
[2017-03-30 05:42] LABS: POTASSIUM 2.7 MEQ/L (3.5-5.1)
[2017-03-30] MEDS ORDERED: POTASSIUM CHLOR 20 MEQ PREMIX 100 ML IV ONE (06:00)
[2017-03-30] MEDS ORDERED: POTASSIUM CHLORIDE 20 MEQ CONTROLLED RELEASE TAB PO ONE (06:00)
[2017-03-30] MEDS: INSULIN ASPART SUPPLEMENTAL SCALE SQ SCH ×2 (06:10→09:54)
[2017-03-30 07:18] VITALS: BP 157/82; PULSE 75; RESP 18; TEMP 97.5; O2SAT 97
[2017-03-30] MEDS: INSULIN DETEMIR 100 UNITS/ML VIAL SQ SCH (09:53)
[2017-03-30 11:36] VITALS: BP 155/93; PULSE 69; RESP 18; TEMP 97.2; O2SAT 98
[2017-03-30] MEDS: CEFEPIME INJ 1,000 MG in SODIUM CHLORIDE 0.9% INJ 100 ML IV SCH (12:32)
[2017-03-30] MEDS ORDERED: LISINOPRIL 20 MG TAB PO ONE (13:00)
[2017-03-30] MEDS ORDERED: LISI-515 PO (13:17)
--- NOTE | 2017-03-30 13:28 | HHI.PR ---
Subjective Remarks Pt feels much better, tolerating a diet. would like to go home today. denies any CP/SOB/N/V cannot remember if he takes any BP meds. States he has potassium tablets at home. Objective Vitals Vital Signs Date Time Temp Pulse Resp B/P Pulse Ox O2 Delivery O2 Flow Rate FiO2 03/30/17 11:36 97.2 69 18 155/93 98 03/30/17 07:18 97.5 75 18 157/82 97 03/30/17 04:20 98.0 66 18 143/92 97 03/30/17 00:15 99.3 85 18 131/85 95 03/29/17 19:55 98.0 82 18 144/67 98 03/29/17 16:00 98.4 72 18 140/84 100 03/29/17 16:00 72 03/29/17 14:00 72 I/O 03/29/17 03/29/17 03/29/17 03/30/17 03/30/17 03/30/17 07:00 15:00 23:00 07:00 15:00 23:00 Intake Total 1698 ml 1783 ml 480 ml 480 ml Output Total 1700 ml 1000 ml Balance -2 ml 783 ml 480 ml 480 ml Intake Oral 480 ml 480 ml 480 ml IV Total 1698 ml 1303 ml Output Urine Total 1700 ml 1000 ml # Voids 2 2 # Bowel Movements 0 3 0 0 Result Diagram: 03/30/17 0454 03/30/17 0454 Imaging Last Impressions Chest X-Ray 03/28/17 1650 Signed Impressions: Service Date/Time: Tuesday, March 28, 2017 17:10 - CONCLUSION: 1. No pneumothorax status post placement of right internal jugular central line which has its tip in the superior vena cava. Eddi Van MD Objective Remarks GENERAL: Well-nourished, well-developed patient. CARDIOVASCULAR: Regular rate and rhythm without murmurs RESPIRATORY: Breath sounds equal bilaterally. No accessory muscle use. GASTROINTESTINAL: Abdomen soft, non-tender, nondistended. MUSCULOSKELETAL: moves extremities well. A/P Assessment and Plan DKA - Insulin drip as per protocol at this time. Anion gap closed, CO2 above 18, beta hydroxybutyrate is 1.53. Will transition to SQ insulin protocol. Pt usually takes lantus 37units at bedtime. He was started on 15units of levemir in AM and 10units at bedtime and coverage w a medium ISS. Pt currently is tolerating a diet. Pt wishes to go home and will need a note for work. Appetite is much improved however not yet back to baseline. Pt was instructed to take 20 units of his lantus tonight and then take 30units the next evening and continue to cover w his novolog. He can resume his 37units of lantus once his appetite is back to baseline. I stressed to patient that he should keep a log of his Blood sugars and he should bring log to PCP in 2-3 days so his insulin can be adjusted accordingly. Pt tells me that he doesn't need refills on his medications. - Blood cultures neg x 2 days Hypokalemia: K down to 2.7. Given 20meq IV x 1 and 40meq po x 1. Repeating a K level now prior to discharge. If still low will replete and give pt a script for KCl. Dyslipidemia - Lipid reviewed. Discharge Planning transitioning to SQ insulin, if tolerating diet transfer to regular floor later today Gayatri Pineda MD March 30, 2017 13:28
--- NOTE | 2017-03-30 13:49 | HHI.DS ---
Discharge Summary Admission Date March 28, 2017 at 18:53 Discharge Date: March 30, 2017 Admitting Diagnosis (1) DKA (diabetic ketoacidoses) ICD Code: E13.10 Diagnosis: Principal Procedures none Brief History - From Admission 56 years old with a history of an insulin-dependent diabetes mellitus was found by his down at home. On scene the blood glucose was outside of the measurable range. Initially when the patient arrived to emergency department he was only minimally responsive. He was emergently resuscitated with IV fluid hydration and insulin bolus. He has been admitted to ICU with the DKA. CBC/BMP: 03/30/17 0454 03/30/17 0454 Significant Findings Laboratory Tests Test 03/28/17 03/28/17 03/28/17 03/28/17 16:48 17:15 17:56 23:34 Blood Gas HCO3 2 mmol/L (22-26) Blood Gas Base Excess -27.5 mmol/L (-2-2) Arterial Blood pH 7.02 (7.380-7.420) Arterial Blood Partial 8 mmHg (38-42) Pressure CO2 Arterial Blood Partial 259 mmHG Pressure O2 (61-120) Red Blood Count 4.06 MIL/MM3 (4.50-5.90) Mean Corpuscular Volume 106.9 FL (80.0-100.0) Mean Corpuscular Hemoglobin 35.0 PG (27.0-34.0) Neutrophils (%) (Auto) 88.9 % (16.0-70.0) Lymphocytes (%) (Auto) 5.2 % (9.0-44.0) Lymphocytes # (Auto) 0.4 TH/MM3 (1.0-4.8) Neutrophils % (Manual) 78 % (16-70) Band Neutrophils % 7 % (0-6) Lymphocytes % 4 % (9-44) Monocytes % 11 % (0-8) Bedside Sodium 117 MMOL/L (138-146) Sodium Level 118 MEQ/L (136-145) Bedside Potassium 5.5 MMOL/L (3.5-4.9) Potassium Level 5.3 MEQ/L 3.2 MEQ/L (3.5-5.1) (3.5-5.1) Bedside Chloride 93 MMOL/L (98-109) Chloride Level 83 MEQ/L 111 MEQ/L (98-107) (98-107) Carbon Dioxide Level 6.0 MEQ/L 17.8 MEQ/L (21.0-32.0) (21.0-32.0) Anion Gap 29 MEQ/L (5-15) Bedside Blood Urea Nitrogen 58 MG/DL (8-26) Blood Urea Nitrogen 52 MG/DL (7-18) 37 MG/DL (7-18) Creatinine 2.48 MG/DL 1.56 MG/DL (0.60-1.30) (0.60-1.30) Bedside Creatinine 2.0 MG/DL (0.8-1.3) Estimat Glomerular Filtration 27 ML/MIN (>89) 46 ML/MIN (>89) Rate Bedside Glucose GREATER THAN 700 MG/DL (60-95) Random Glucose 869 MG/DL 58 MG/DL (74-106) (74-106) Serum Osmolality 324 MOSM/KG (275-295) Phosphorus Level 6.8 MG/DL 0.3 MG/DL (2.5-4.9) (2.5-4.9) Magnesium Level 2.9 MG/DL (1.5-2.5) Aspartate Amino Transf 48 U/L (15-37) (AST/SGOT) Alkaline Phosphatase 158 U/L (45-117) Troponin I LESS THAN 0.02 NG/ML (0.02-0.05) Lipase 647 U/L (73-393) B-Hydroxybutyrate 11.85 MMOL/L 2.22 MMOL/L (0.00-0.39) (0.00-0.39) Urine Glucose (UA) 1000 mg/dL (NEG) Urine Ketones 40 mg/dL (NEG) Urine Occult Blood SMALL (NEG) Urine Mucus FEW /lpf (OCC) Test 03/29/17 03/29/17 03/29/17 03/30/17 05:15 10:10 20:37 04:54 Chloride Level 113 MEQ/L 108 MEQ/L 108 MEQ/L (98-107) (98-107) (98-107) Carbon Dioxide Level 18.4 MEQ/L (21.0-32.0) Blood Urea Nitrogen 28 MG/DL (7-18) Estimat Glomerular Filtration 58 ML/MIN (>89) Rate Random Glucose 165 MG/DL 194 MG/DL 67 MG/DL (74-106) (74-106) (74-106) Phosphorus Level 0.7 MG/DL 0.9 MG/DL (2.5-4.9) (2.5-4.9) B-Hydroxybutyrate 1.53 MMOL/L 1.43 MMOL/L (0.00-0.39) (0.00-0.39) Red Blood Count 3.65 MIL/MM3 3.52 MIL/MM3 (4.50-5.90) (4.50-5.90) Hemoglobin 12.5 GM/DL 12.1 GM/DL (13.0-17.0) (13.0-17.0) Hematocrit 35.4 % 34.4 % (39.0-51.0) (39.0-51.0) Mean Corpuscular Hemoglobin 34.4 PG 34.4 PG (27.0-34.0) (27.0-34.0) Platelet Count 143 TH/MM3 110 TH/MM3 (150-450) (150-450) Neutrophils (%) (Auto) 77.5 % (16.0-70.0) Lymphocytes (%) (Auto) 8.2 % (9.0-44.0) Monocytes (%) (Auto) 13.8 % 10.8 % (0.0-8.0) (0.0-8.0) Lymphocytes # (Auto) 0.4 TH/MM3 0.9 TH/MM3 (1.0-4.8) (1.0-4.8) Potassium Level 3.1 MEQ/L 2.7 MEQ/L (3.5-5.1) (3.5-5.1) Triglycerides Level 314 MG/DL (42-150) Imaging Last Impressions Chest X-Ray 03/28/17 1650 Signed Impressions: Service Date/Time: Tuesday, March 28, 2017 17:10 - CONCLUSION: 1. No pneumothorax status post placement of right internal jugular central line which has its tip in the superior vena cava. Eddi Van MD PE at Discharge GENERAL: Well-nourished, well-developed patient. CARDIOVASCULAR: Regular rate and rhythm without murmurs RESPIRATORY: Breath sounds equal bilaterally. No accessory muscle use. GASTROINTESTINAL: Abdomen soft, non-tender, nondistended. MUSCULOSKELETAL: moves extremities well. Hospital Course DKA - Insulin drip as per protocol at this time. Anion gap closed, CO2 above 18, beta hydroxybutyrate is 1.53. Will transition to SQ insulin protocol. Pt usually takes lantus 37units at bedtime. He was started on 15units of levemir in AM and 10units at bedtime and coverage w a medium ISS. Pt currently is tolerating a diet. Pt wishes to go home. Appetite is much improved however not yet back to baseline. Pt was instructed to take 20 units of his lantus tonight and then take 30units the next evening and continue to cover w his novolog. He can resume his 37units of lantus once his appetite is back to baseline. I stressed to patient that he should keep a log of his Blood sugars and he should bring log to PCP in 2-3 days so his insulin can be adjusted accordingly. Pt tells me that he doesn't need refills on his medications. - Blood cultures neg x 2 days Hypokalemia: K down to 2.7. Given 20meq IV x 1 and 40meq po x 1. Repeating a K was 3.7 Pt Condition on Discharge: Stable Discharge Disposition: Discharge Home Discharge Time: > 30 minutes Discharge Instructions DIET: Follow Instructions for: Heart Healthy Diet, Diabetic Diet Activities you can perform: Regular-No Restrictions Follow up Referrals: Physician - 2-3 Days New Medications: Lisinopril (Lisinopril) 20 Mg Tab 20 MG PO DAILY Days 30 TAB Continued Medications: Insulin Aspart Inj (Novolog Inj) 1,000 Unit/10 Ml Vial 0 SQ DIRECTED Sliding Scale as directed. Blood Sugar Management #10 Ref 0 ML Insulin Glargine Inj (Lantus Inj) 1,000 Unit/10 Ml Vial 37 UNITS SQ HS Blood Sugar Management Ref 0 VIAL Gayatri Pineda MD March 30, 2017 13:49
[2017-03-31] MEDS ORDERED: LISINOPRIL 20 MG TAB PO SCH (09:00)
== END 2017-03-30 16:06 | disposition home or self-care (01) | DRG 638 ==
LOC: NEPC 16:38 → NEDA 18:53 → HIMW 20:25 → N06A 03-29 17:28
PROVIDERS: ADMIT Hospitalist; ATTEND Hospitalist
PROC: 02HV33Z Insertion of Infusion Device into Superior Vena Cava, Percutaneous Approach (ICD-10-PCS; principal; 2017-03-28)
DX: E10.10 Type 1 diabetes mellitus with ketoacidosis without coma (principal); N17.9 Acute kidney failure, unspecified; I48.91 Unspecified atrial fibrillation; Z79.4 Long term (current) use of insulin; E78.5 Hyperlipidemia, unspecified; E87.6 Hypokalemia
CPT/HCPCS: 36556; 36600; 51702; 71010; 80048; 80053; 80061; 80307; 81001; 82010; 82435; 82565; 82805; 82947; 82948; 83605; 83690; 83735; 83930; 84100; 84132; 84295; 84484; 84520; 85007; 85025; 85027; 87040; 87205; 87641; 93005; 94150; 96361; 96365; 96375; 96376; J0692; J1815; J1817; J3370; J3480; J7030; J7042; J7050